=== PATIENT | female | born 1995 | race Caucasian/White ===

== ENCOUNTER 2016-05-20 11:37 | Emergency (ER) | payer OTHER ==
[2016-05-20 12:55] LABS: BILIRUBIN NEGATIVE (NEGATIVE); BLOOD NEGATIVE Ery/uL (NEGATIVE); CLARITY CLEAR (CLEAR); COLOR STRAW (YELLOW); GLUCOSE (U) NORMAL (NORMAL); KETONE (U) NEGATIVE (NEGATIVE); LEUKOCYTES NEGATIVE Leu/uL (NEGATIVE); NITRITE NEGATIVE (NEGATIVE); PROTEIN NEGATIVE (NEGATIVE); SPECIFIC GRAVITY <=1.005 (1.001-1.030); UROBILINOGEN 0.2 mg/dL (0.2-1.0); pH 6.5 (5.0-9.0)
[2016-05-20 13:52] LABS: BASOPHIL 0.5 % (0-2); EOSINOPHIL 1.1 % (0-5); HGB 13.8 g/dl (12.5-16.0); MCH 31.3 pg (25.0-31.0); MCHC 35.4 g/dL (32.0-36.0); MCV 88.4 fL (78.0-100.0); MONOCYTE 5.7 % (0-12); MPV 9.5 fL (6.0-9.5); NEUTROPHIL 65.7 % (41-80); PLT 199 K/uL (150-400); RBC 4.41 M/uL (4.20-5.40); RDW 12.7 % (11.5-14.0); WBC 5.7 K/uL (4.0-10.5)
[2016-05-20 14:11] LABS: CREATININE 0.7 mg/dL (0.5-1.0); POTASSIUM 4.3 mmol/L (3.5-5.1)
== END 2016-05-20 14:19 | disposition home or self-care (01) ==
LOC: FER 11:37
PROVIDERS: Emergency Medicine
DX: N93.9 Abnormal uterine and vaginal bleeding, unspecified (principal); Z88.0 Allergy status to penicillin
CPT/HCPCS: 36415; 80048; 81003; 85025

== ENCOUNTER 2020-04-06 00:11 | Inpatient (IN) | payer OTHER ==
[2020-04-06 01:55] LABS: HCT 35.2 % (37.0-47.0); HGB 12.5 g/dl (12.5-16.0); MCH 33.6 pg (25.0-31.0); MCHC 35.5 g/dL (32.0-36.0); MCV 94.6 fL (78.0-100.0); MPV 10.2 fL (6.0-9.5); RBC 3.72 M/uL (4.20-5.40); RDW 13.3 % (11.5-14.0); WBC 10.3 K/uL (4.0-10.5)
[2020-04-06 02:02] LABS: BILIRUBIN NEGATIVE (NEGATIVE); BLOOD NEGATIVE Ery/uL (NEGATIVE); CLARITY CLEAR (CLEAR); COLOR YELLOW (YELLOW); GLUCOSE (U) NORMAL (NORMAL); LEUKOCYTES NEGATIVE Leu/uL (NEGATIVE); NITRITE NEGATIVE (NEGATIVE); PROTEIN NEGATIVE (NEGATIVE); UROBILINOGEN 0.2 mg/dL (0.2-1.0)
[2020-04-07 05:19] LABS: HGB 11.7 g/dl (12.5-16.0); MCH 33.2 pg (25.0-31.0); MCHC 34.4 g/dL (32.0-36.0); MCV 96.6 fL (78.0-100.0); MPV 9.9 fL (6.0-9.5); RBC 3.52 M/uL (4.20-5.40); RDW 13.5 % (11.5-14.0); WBC 11.7 K/uL (4.0-10.5)
[2020-04-08] MEDS ORDERED: IBUPROFEN800 MG PO ×2 (09:03→10:03)
--- NOTE | 2020-04-10 08:51 | NUR ---
PT. D/C HOME ON 04/08/2020. NO NEEDS.
== END 2020-04-08 11:47 | disposition home or self-care (01) | DRG 806 ==
LOC: FOB 00:11
PROVIDERS: ADMIT Obstetrics & Gynecology
PROC: 10E0XZZ Delivery of Products of Conception, External Approach (ICD-10-PCS; principal; 2020-04-06)
PROC: 3E033VJ Introduction of Other Hormone into Peripheral Vein, Percutaneous Approach (ICD-10-PCS; 2020-04-06)
DX: O69.81X0 Labor and delivery complicated by cord around neck, without compression, not applicable or unspecified (principal); O98.513 Other viral diseases complicating pregnancy, third trimester; Z37.0 Single live birth; Z3A.39 39 weeks gestation of pregnancy; Q99.2 Fragile X chromosome; B00.9 Herpesviral infection, unspecified; Z88.1 Allergy status to other antibiotic agents
CPT/HCPCS: 36415; 81003; J7120; U0002